=== PATIENT | female | born 1980 | race Caucasian/White ===

== ENCOUNTER 2019-06-05 17:20 | Emergency (ER) | payer MEDICAID, OTHER, SELFPAY ==
[~2019-06-05] VITALS: Ht 157.5 cm; Wt 75.0 kg
[2019-06-05 17:40] VITALS: BP 116/78
== END 2019-06-05 18:16 | disposition home or self-care (01) ==
LOC: ED 18:13
DX: S60.022A Contusion of left index finger without damage to nail, initial encounter (principal); W23.0XXA Caught, crushed, jammed, or pinched between moving objects, initial encounter; Y93.89 Activity, other specified; Y92.410 Unspecified street and highway as the place of occurrence of the external cause; Y99.8 Other external cause status
CPT/HCPCS: 11740; 90471; 90715